=== PATIENT | male | born 1990 | race African-American/Black ===

== ENCOUNTER 2017-10-31 18:51 | Observation (INO) | payer MEDICAID, OTHER ==
[~2017-10-31] VITALS: Ht 177.8 cm; Wt 71.1 kg
[2017-10-31] MEDS ORDERED: LORazepam 1MG TABLET ONE (19:28)
[2017-10-31] MEDS ORDERED: LORazepam 1MG TABLET PO ONE (19:30)
[2017-10-31 19:32] LABS: ALANINE AMINOTRANSFERASE 23 U/L (12-78); ALBUMIN 4.4 g/dL (3.4-5.0); ANION GAP 10 mmol/L (5-15); CALCIUM 9.5 mg/dL (8.5-10.1); CHLORIDE 106 mmol/L (98-107); SALICYLATE LEVEL 3.9 mg/dL (2.8-20.0)
[2017-10-31 19:35] LABS: ALKALINE PHOSPHATASE 60 U/L (45-117); BILIRUBIN,TOTAL 0.5 mg/dL (0.2-1.0); TOTAL PROTEIN 8.5 g/dL (6.4-8.2)
[2017-10-31 19:37] LABS: ACETAMINOPHEN < 2 mcg/mL (10-30)
[2017-10-31 19:55] LABS: MD SCAN
[2017-10-31 19:56] LABS: BASOPHILS # (AUTO) 0.03 x10^3/uL (0-0.1); BASOPHILS % (AUTO) 1 % (0-1); EOSINOPHILS # (AUTO) 0.02 x10^3/uL (0-0.4); EOSINOPHILS % (AUTO) 0 % (1-7); LYMPHOCYTES # (AUTO) 1.72 x10^3/uL (1-3.4); LYMPHOCYTES % (AUTO) 30 % (22-44); MEAN CORPUSCULAR HEMOGLOBIN 28.6 pg (27.5-34.5); MEAN CORPUSCULAR HGB CONC 32.9 g/dL (33.2-36.2); MEAN PLATELET VOLUME 8.3 fL (7.4-10.4); MONOCYTES # (AUTO) 0.55 x10^3/uL (0.2-0.8); MONOCYTES % (AUTO) 10 % (2-9); NEUTROPHILS # (AUTO) 3.43 x10^3/uL (1.8-6.8); NEUTROPHILS % (AUTO) 60 % (42-75); PLATELET COUNT 255 x10^3/uL (130-400); RED BLOOD COUNT 5.75 x10^6/uL (4.38-5.82); RED CELL DISTRIBUTION WIDTH 13.1 % (9.4-14.8)
[2017-10-31 22:32] LABS: AMPHETAMINE SCREEN, URINE Negative (Negative); BARBITURATE SCREEN, URINE Negative (Negative); BENZODIAZEPINE SCREEN, URINE Negative (Negative); CANNABINOID SCREEN, URINE Positive (Negative); COCAINE SCREEN, URINE Negative (Negative); METHADONE SCREEN, URINE Negative (Negative); OPIATE SCREEN, URINE Negative (Negative)
[2017-11-01] MEDS ORDERED: ACETAMINOPHEN 325 MG TABLET PO PRN
[2017-11-01] MEDS ORDERED: TRAZODONE 50MG TABLET PO PRN
[2017-11-01] MEDS ORDERED: ONDANSETRON ODT 4 MG PO PRN
[2017-11-01 00:54] VITALS: BP 135/88
[2017-11-01 07:36] VITALS: BP 145/81
== END 2017-11-01 16:45 ==
LOC: ED 20:38 → EDIP 22:46 → INTOOBSV 22:46 → 3E 11-01 00:49
PROVIDERS: ADMIT Hospitalist; ATTEND Hospitalist
DX: R45.851 Suicidal ideations (principal); F23 Brief psychotic disorder; F22 Delusional disorders
CPT/HCPCS: 36415; 80053; 80307; 80329; 85025; 99285; G0378; G0480